=== PATIENT | male | born 1975 | race Hispanic/Latino ===

== ENCOUNTER 2024-09-30 07:05 | Observation (INO) | payer SELFPAY ==
[~2024-09-30] VITALS: Ht 165.1 cm; Wt 91.6 kg
--- NOTE | 2024-09-30 07:43 | ERN ---
General Chief Complaint: Abdominal Pain Stated Complaint: LLQ ABDOMINAL PAIN Time Seen by MD: 07:09 History of Present Illness Initial Comments 48M, otherwise healthy, presents for severe abdominal pain beginning a few hours ago. Patient reports LLQ pain, severe, not increased with movement. No n/v/d/fever. No urinary symptoms, no testicular pain. He has never had this pain before. Last oral intake was last night. Allergies: Coded Allergies: No Known Drug Allergies (Unverified Allergy, Unknown, 09/30/24) Past Medical History Past Medical History: No Pertinent History Past Surgical History: None ROS Dictation CONSTITUTIONAL: No chills, no fever, no weakness, no diaphoresis, no malaise. HEAD/FACE: No signs of trauma. EENT: No eye pain, no blurred vision, no tearing, no double vision, no ear pain, no ear discharge, no nose pain, no nasal congestion, no throat pain, no throat swelling, no mouth pain. RESPIRATORY: No cough, no orthopnea, no SOB, no stridor, no wheezing. CARDIOVASCULAR: No chest pain, no edema, no palpitations, no syncope. GASTROINTESTINAL/ABDOMINAL: Abdominal pain GENITOURINARY: No abnormal discharge, no dysuria, no frequent urination, no hematuria. No complaints of pain in the genitals. MUSCULOSKELETAL: No back pain, no gout, no joint pain, no joint swelling, no muscle pain, no muscle stiffness, no neck pain. INTEGUMENTARY: No change in color, no change in hair/nails, no dryness, no lesion, no lumps, no rash. NEUROLOGICAL/PSYCH: No anxiety, not depressed, no emotional problem, no headache, no numbness, no pre-existing deficit, no history of seizures, no tremors, no weakness. HEMATOLOGIC/LYMPHATIC: Not anemic, no history of blood clots, no apparent bleeding, no bruising, glands not swollen. All Systems Negative, Except as Noted. Physical Exam Physical Exam Dictation VITAL SIGNS: Reviewed. GENERAL APPEARANCE: Alert, oriented x3, moderate distress due to pain HEAD AND FACE: Non-traumatic. EYES: PERRL, pink conjunctivas, eyelid no trauma, anterior chamber clear. EARS: Pinnas intact and no signs of trauma or erythema. Ear canals clear and no discharge. TMs no erythema. NOSE: No discharge, no bleeding. OROPHARYNX: Mouth normal, teeth no caries, tongue pink. Pharynx clear, no erythema. Tonsils no exudates, no abscesses noted. Mucous membrane moist. NECK: Supple, non-tender, no thyromegaly, no masses, no JVD, no bruits. BREAST: Deferred. CHEST: No tenderness, no crepitus, no paradoxical movement, no retractions. LUNGS: Clear, well-ventilated, symmetric, no rales, no wheezing, no rhonchi, no stridor, good breath sounds bilaterally. HEART: Regular rate, regular rhythm, no murmur, no gallops. VASCULAR: No peripheral edema. ABDOMEN: Mild abdominal distention left lower quadrant tenderness RECTAL: Deferred. GENITAL: Deferred. NEUROLOGICAL: Normal speech, gross motor function intact, gross sensory function intact. MUSCULOSKELETAL: Neck nontender, full range of motion, back nontender, full range of motion. EXTREMITIES: Nontender, full range of motion. SKIN: Color pink, dry, no turgor, no rash, no lacerations, no abrasions, no contusions. LYMPHATICS: Deferred. Results Laboratory and Microbiology Lab and Micro Result Laboratory Tests Test 09/30/24 07:54 09/30/24 09:15 White Blood Count 12.7 K/uL (4.8-10.8) H Red Blood Count 5.12 MIL/uL (4.50-6.20) Hemoglobin 17.3 g/dL (14.0-18.0) Hematocrit 47.3 % (42-54) Mean Corpuscular Volume 92.4 fL (79-99) Mean Corpuscular Hemoglobin 33.8 pg (27.0-33.0) H Mean Corpuscular Hemoglobin Concent 36.6 g/dL (32.0-36.0) H Red Cell Distribution Width 11.9 % (11.0-15.5) Platelet Count 181 K/uL (130-400) Mean Platelet Volume 10.9 fL (7.5-10.5) H Immature Granulocyte % (Auto) 0.6 % (0-1) Neutrophils (%) (Auto) 74.3 % (40.0-77.0) Lymphocytes (%) (Auto) 13.7 % (21.0-51.0) L Monocytes (%) (Auto) 10.5 % (3.0-13.0) Eosinophils (%) (Auto) 0.5 % (0.0-8.0) Basophils (%) (Auto) 0.4 % (0.0-5.0) Neutrophils # (Auto) 9.4 K/uL (1.8-7.7) H Lymphocytes # (Auto) 1.7 K/uL (1.0-4.8) Monocytes # (Auto) 1.3 K/uL (0.1-1.0) H Eosinophils # (Auto) 0.06 K/uL (0.00-0.70) Basophils # (Auto) 0.05 K/uL (0.00-0.20) Absolute Immature Granulocyte (auto 0.08 K/uL (0-1) Nucleated Red Blood Cells 0.0 % (0.0-0.19) Red Blood Cell Morphology See comments Sodium Level 134 mmol/L (136-145) L Potassium Level 3.9 mmol/L (3.5-5.1) Chloride Level 103 mmol/L (101-111) Carbon Dioxide Level 27 mmol/L (21-32) Blood Urea Nitrogen 13 mg/dL (7-18) Creatinine 1.2 mg/dL (0.5-1.3) Glomerular Filtration Rate Calc 75 mL/min (>90) Random Glucose 119 mg/dL (70-105) H Total Calcium 9.2 mg/dL (8.5-10.1) Troponin I High Sensitivity 5 ng/L (4-75) Lipase 78 U/L (16-77) H Urine Color COLORLESS (YELLOW) Urine Appearance CLEAR (CLEAR) Urine pH 5.0 (5.0-8.0) Urine Specific [place] 1.027 (1.001-1.031) Urine Protein NEGATIVE mg/dL (NEGATIVE) Urine Glucose (UA) NEGATIVE mg/dL (NEGATIVE) Urine Ketones NEGATIVE mg/dL (NEGATIVE) Urine Occult Blood +- (TRACE) (NEGATIVE) H Urine Nitrate NEGATIVE (NEGATIVE) Urine Bilirubin NEGATIVE mg/dL (NEGATIVE) Urine Urobilinogen 0.2 mg/dL (0.2-1.0) Urine Leukocyte Esterase NEGATIVE Nghia/uL Urine RBC 6-10 /HPF (0-1) H Urine WBC None /HPF (0-1) Urine Squamous Epithelial Cells RARE /HPF (0-2) Urine Bacteria None /HPF (None Seen) MDM On left flank pain left lower abdominal pain Historian: Patient Comorbidities: None Limitations by social determinants of health: None Differential diagnosis: Diverticulitis, abdominal surgical pathology, kidney stone other Vital signs are stable Labs show mild leukocytosis, no shift or bands. Chemistries stable. Urinalysis does show blood, no signs of infection. CT scan shows hydronephrosis and stranding in the left side, consistent with that they stone other there was no obvious stone. Patient received fluid bolus, two different doses of Toradol, two doses of Dilaudid, on re-evaluation he is still in pain. We will admit for pain control. Patient is agreeable Hospitalist consulted ED Course Orders Procedure Category Date Status Time Cbc With Differential LAB 09/30/24 Complete 07:15 Troponin I High LAB 09/30/24 Complete Sensitivity 07:15 Urinalysis Profile LAB 09/30/24 Complete 07:15 Ct Abdomen/Pelvis CT 09/30/24 Resulted W/Contrast 07:15 Chest 1vw RAD 09/30/24 Resulted 07:15 Lipase LAB 09/30/24 Complete 07:15 Basic Metabolic Panel LAB 09/30/24 Complete 07:15 Lactated Ringers PHA 09/30/24 Complete 1000ml (Lactated 07:30 Hydromorphone 0.5mg PHA 09/30/24 Complete Syg (Dilaudid 0.5mg 07:30 Ketorolac PHA 09/30/24 Complete Tromethamine 15mg/Ml 07:30 Iohexol (Omnipaque) PHA 09/30/24 Complete 08:32 Ketorolac PHA 09/30/24 Complete Tromethamine 15mg/Ml 09:30 Hydromorphone 0.5mg PHA 09/30/24 Complete Syg (Dilaudid 0.5mg 09:30 Hydromorphone 1 Mg PHA 09/30/24 Transmitted Inj (Dilaudid 1mg Inj 11:30 Current Medications Medications (Trade) Dose Ordered Sig/Kit Route PRN Reason Start Time Stop Time Status Last Admin Dose Admin Hydromorphone HCl (DiLAUDid 0.5MG INJ) 0.5 mg ONCE ONCE IVP 09/30/24 07:30 09/30/24 07:31 DC 09/30/24 07:52 Hydromorphone HCl (DiLAUDid 0.5MG INJ) 0.5 mg ONCE ONCE IVP 09/30/24 09:30 09/30/24 09:34 DC 09/30/24 09:50 Hydromorphone HCl (DiLAUDid 1MG INJ) 1 mg ONCE ONCE IVP 09/30/24 11:30 09/30/24 11:31 UNV Iohexol (Omnipaque) 35,000 mg STK-MED ONCE IV 09/30/24 08:32 09/30/24 08:32 DC Ketorolac Tromethamine (toRADol) 15 mg ONCE ONCE IV 09/30/24 07:30 09/30/24 07:31 DC 09/30/24 07:52 Ketorolac Tromethamine (toRADol) 15 mg ONCE ONCE IV 09/30/24 09:30 09/30/24 09:34 DC 09/30/24 09:50 Lactated Ringer's 1,000 ml @ 0 mls/hr ONCE ONCE IV 09/30/24 07:30 09/30/24 07:31 DC 09/30/24 07:52 Vital Signs Date Time Temp Pulse Resp B/P (MAP) Pulse Ox O2 Delivery O2 Flow Rate FiO2 09/30/24 08:52 97.9 69 16 187/110 98 Room Air* 0 21 09/30/24 07:20 97.9 66 16 185/117 95 Room Air* 0 21 09/30/24 07:06 97.9 69 14 186/100 95 0 DX & DISP Disposition: Inpatient Departure Impression: Primary Impression: Left nephrolithiasis Additional Impressions: Intractable pain, Hydronephrosis, left Condition: Stable Referrals: SELF,REFERRAL (PCP) LESLI SOLIS DO September 30, 2024 07:43
[2024-09-30] MEDS: hydroMORPHone 0.5 MG SYG (0.5MG/0.5ML) IVP ONE ×2 (07:52→09:50)
[2024-09-30] MEDS: LACTATED RINGERS 1000ML 1,000 ML IV ONE ×2 (07:52→11:20)
[2024-09-30] MEDS: ketOROlac 15MG/ML VIAL (15MG/ML) IV ONE ×2 (07:52→09:50)
[2024-09-30 08:07] LABS: BASOPHILS # (AUTO) 0.05 K/uL (0.00-0.20); BASOPHILS % (AUTO) 0.4 % (0.0-5.0); EOSINOPHILS # (AUTO) 0.06 K/uL (0.00-0.70); EOSINOPHILS % (AUTO) 0.5 % (0.0-8.0); HEMATOCRIT 47.3 % (42-54); IMMATURE GRANULOCYTE ABSOLUTE 0.08 K/uL (0-1); LYMPHOCYTES # (AUTO) 1.7 K/uL (1.0-4.8); LYMPHOCYTES % (AUTO) 13.7 % (21.0-51.0); MEAN CORPUSCULAR HEMOGLOBIN 33.8 pg (27.0-33.0); MEAN CORPUSCULAR HGB CONC 36.6 g/dL (32.0-36.0); MEAN CORPUSCULAR VOLUME 92.4 fL (79-99); MONOCYTES # (AUTO) 1.3 K/uL (0.1-1.0); MONOCYTES % (AUTO) 10.5 % (3.0-13.0); NEUTROPHILS # (AUTO) 9.4 K/uL (1.8-7.7); NEUTROPHILS % (AUTO) 74.3 % (40.0-77.0); PLATELET COUNT (AUTO) 181 K/uL (130-400); RED BLOOD CELL COUNT(AUTO) 5.12 MIL/uL (4.50-6.20); RED CELL DISTRIBUTION WIDTH 11.9 % (11.0-15.5); WHITE BLOOD COUNT (AUTO) 12.7 K/uL (4.8-10.8)
[2024-09-30 08:17] LABS: CREATININE 1.2 mg/dL (0.5-1.3); POTASSIUM 3.9 mmol/L (3.5-5.1)
[2024-09-30] MEDS ORDERED: IOHEXOL 350 MG/ML 100ML INFUS..BTL IV ONE (08:32)
--- NOTE | 2024-09-30 09:02 | NUR ---
PT DOES NOT TAKE ANY DAILY MEDICATIONS.
--- NOTE | 2024-09-30 09:07 | HMCIMG ---
CHEST 1VW HISTORY: Abdominal pain COMPARISON: None FINDINGS: A frontal projection of the chest was obtained. Mild bilateral pulmonary infiltrates are seen may be related to mild pulmonary vascular congestion with possible superimposed pneumonitis. The heart is borderline enlarged. Degenerative changes are seen. No evidence of aortic calcification is seen. IMPRESSION: 1. Mild bilateral pulmonary infiltrates are seen may be related to mild pulmonary vascular congestion with possible superimposed pneumonitis.
--- NOTE | 2024-09-30 09:12 | HMCIMG ---
CT ABDOMEN/PELVIS W/CONTRAST HISTORY: Left lower abdominal pain COMPARISON: None TECHNIQUE: Multiple sequential axial images of the abdomen and pelvis were obtained from the dome of the diaphragm through symphysis pubis. Patient was not given contrast through intravenous route. Oral contrast was not given. FINDINGS: No pleural effusion is seen bilaterally. There is no evidence of parenchymal disease or pulmonary nodule of the visualized lower lungs. Degenerative changes of the thoracolumbar spine are present. The heart is not enlarged. The liver, spleen, adrenal glands and pancreas are unremarkable. No hydronephrosis is seen on the right. There is mild left hydronephrosis and left hydroureter with non opaque material in the left UV junction may be related to nonradiopaque stone. Fecal material is seen in the colon. There are normal size retroperitoneal and mesenteric lymph nodes. No ascites is seen. Atherosclerotic changes are present. Pelvic sidewalls are symmetric bilaterally. Bladder is well distended without wall thickening. IMPRESSION: 1. There is mild left hydronephrosis and left hydroureter with non opaque material in the left UV junction may be related to nonradiopaque stone. Left perinephric fat stranding is seen. CT was performed with one or more following dose reduction techniques: automated exposure control, adjustment of the mA and kv according to patient's size, or use of a iterative reconstruction technique.
[2024-09-30 09:38] LABS: APPEARANCE,URINE CLEAR (CLEAR); BILIRUBIN,URINE NEGATIVE (NEGATIVE); COLOR,URINE COLORLESS (YELLOW); GLUCOSE, URINE (UA) NEGATIVE (NEGATIVE); KETONES,URINE NEGATIVE (NEGATIVE); LEUKOCYTE ESTERASE ,URINE NEGATIVE Leu/uL (NEGATIVE); NITRATE,URINE NEGATIVE (NEGATIVE); PROTEIN,URINE NEGATIVE (NEGATIVE); UROBILINOGEN,URINE 0.2 mg/dL (0.2-1.0)
[2024-09-30 09:44] LABS: ADD UA MICROSCOPIC YES
[2024-09-30 09:46] LABS: MUCUS,URINE RARE LPF (None Seen); SQUAMOUS EPITHELIAL CELL,UR RARE /HPF (0-2)
[2024-09-30] MEDS: hydroMORPHone 1 MG INJ IVP ONE (11:20)
[2024-09-30] MEDS ORDERED: ondanSETRON 4MG INJ IVP PRN (12:00)
[2024-09-30] MEDS ORDERED: acetaMINOPHEN 325 MG TAB PO PRN ×2 (12:00)
[2024-09-30] MEDS ORDERED: morPHINE 2 MG SYG IVP PRN (12:00)
[2024-09-30] MEDS: 0.9%NACL 1000ML 1,000 ML IV SCH (12:21)
--- NOTE | 2024-09-30 12:33 | NUR ---
Patient does not take any home medication.
--- NOTE | 2024-09-30 13:44 | NUR ---
Called Mr. Riley for report. Patients vital signs before transfer: blood pressure 160/90 mmHg pulse 78 p/min O2 saturation 99% Respiration 17 p/min at room air temperature 98.8
--- NOTE | 2024-09-30 13:47 | HP ---
[facility] HISTORY AND PHYSICAL Date of Service: September 30, 2024 Time of Service: 13:40 HISTORY OF PRESENT ILLNESS: [He is a 48-year-old male who denies any past medical history presented to the emergency department with complaints of left lower quadrant abdominal pain. Patient reported that around 2:00 a.m. when he started having the pain and continue to progress hence he came to the emergency department for further evaluation. Patient stated that this never happened to him before, he denies nausea vomiting diarrhea no fever no chills. In the ED, his initial vitals showed temperature of 97.9 F, pulse 69, respiratory rate , blood pressure 186/100, pulse oximetry 95% on room air. Lab reviewed, WBC 12.7, sodium 134, random glucose 119, lipase 78. Patient was started with IV fluids with lactated ringer and received Dilaudid a total of2 mg IV, Toradol 30 mg IV in the ED. but patient continued with pain hence referral to monitor the patient for intractable pain. A CT abdomen and pelvis showed mild left hydronephrosis and left hydroureter with non opaque material in the left UV junction maybe related to non radiopaque stone. Left perinephric fat stranding is seen. REVIEW OF SYSTEMS CONSTITUTIONAL: Denies fevers, chills, or night sweats. No unintentional weight loss reported. NEUROLOGICAL: Denies headache, amaurosis fugax, motor weakness, sensory deficit, vertigo/spinning sensation, gait abnormalities, or tremors. ENT: No hearing loss, otalgia, otorrhea, rhinitis, rhinorrhea, hoarseness, or sore throat. CARDIOVASCULAR: Denies any exertional angina, dyspnea on exertion, orthopnea, paroxysmal nocturnal dyspnea, palpitations, life-threatening arrhythmias, claudication. PULMONARY: Denies any shortness of breath, cough, phlegm/sputum, hemoptysis, pleuritic chest pain. SLEEP: Denies morning headaches, daytime somnolence or napping. Denies difficulty falling asleep, staying asleep, waking from sleep. Denies knowledge of snoring. GASTROINTESTINAL: Denies any type of dysphagia to either liquids or solids. Denies nausea, vomiting, pyrosis, early satiety, abdominal pain, diarrhea, co nstipation, or changes in stool consistency or caliber. Denies coffee-ground emesis, hematemesis, hematochezia, or melanotic stools. GENITOURINARY: Denies frequency, urgency, nocturia, hematuria or incontinence (Storage/Irritative symptoms.) Low urinary stream, straining to void, urinary intermittency or hesitancy, splitting of the voiding stream, terminal dribbling. ENDOCRINOLOGIC: Denies polyuria, polydipsia, polyphagia or heat/cold intolerances. HEMATOLOGIC: Denies thrombophilia/previous clots, or coagulopathy/bleeding disorders. ONCOLOGIC: Denies personal history of malignancy. DERMATOLOGIC: Denies rashes or pruritus. PSYCHIATRIC: Denies any suicidal or homicidal ideation. Denies hallucinations. PAST MEDICAL HISTORY: [Denies any past medical history ] PAST SURGICAL HISTORY: [ Denies any past surgical history ] PAST SOCIAL HISTORY: [Patient drinks alcohol at least4 times a week, denies tobacco or illicit drug use ] FAMILY HISTORY: [Noncontributory ] Coded Allergies: No Known Drug Allergies (Unverified Allergy, Unknown, 09/30/24) PHYSICAL EXAM GENERAL APPEARANCE: The patient is awake, alert, and oriented, in no acute cardiopulmonary distress. NEUROLOGICAL: Cranial nerves II-XII grossly intact. Motor is 5/5 in bilateral upper and lower extremities proximal to distal. No sensory deficits. HEENT: Face is symmetric. Pupils are equal and reactive. Extraocular movements are intact. NECK: Supple. No JVD. No thyromegaly. No submental, submandibular, pre- /postauricular, occipital or supraclavicular lymphadenopathy. CHEST: Normal chest expansion. No Telemetry. LUNGS: Absence of any rales, rhonchi or any wheezing. CARDIOVASCULAR: Regular. S1 and S2 normal. No appreciable rubs, murmurs or gallops. ABDOMEN: Soft, nontender, and nondistended. There is no rebound, voluntary guarding, or rigidity. : Deferred. No [place]. EXTREMITIES: Non-edematous and not cyanotic. No clubbing. Good capillary refill. SKIN: No skin breakdown. Vital Sign (Last 24 Hours) 09/30/24 08:52 Temp 97.9 Pulse 69 Resp 16 B/P (MAP) 187/110 Pulse Ox 98 O2 Delivery Room Air* O2 Flow Rate 0 FiO2 21 LABS: Laboratory: Test 09/30/24 09:15 09/30/24 07:54 Range/Units Urine Color COLORLESS YELLOW Urine Appearance CLEAR CLEAR Urine pH 5.0 5.0-8.0 Urine Specific [place] 1.027 1.001-1.031 Urine Protein NEGATIVE NEGATIVE mg/dL Urine Glucose (UA) NEGATIVE NEGATIVE mg/dL Urine Ketones NEGATIVE NEGATIVE mg/dL Urine Occult Blood +- (TRACE) H NEGATIVE Urine Nitrate NEGATIVE NEGATIVE Urine Bilirubin NEGATIVE NEGATIVE mg/dL Urine Urobilinogen 0.2 0.2-1.0 mg/dL Urine Leukocyte Esterase NEGATIVE NEGATIVE Nghia/uL Urine RBC 6-10 H 0-1 /HPF Urine WBC None 0-1 /HPF Urine Squamous Epithelial Cells RARE 0-2 /HPF Urine Bacteria None None Seen /HPF White Blood Count 12.7 H 4.8-10.8 K/uL Red Blood Count 5.12 4.50-6.20 MIL/uL Hemoglobin 17.3 14.0-18.0 g/dL Hematocrit 47.3 42-54 % Mean Corpuscular Volume 92.4 79-99 fL Mean Corpuscular Hemoglobin 33.8 H 27.0-33.0 pg Mean Corpuscular Hemoglobin Concent 36.6 H 32.0-36.0 g/dL Red Cell Distribution Width 11.9 11.0-15.5 % Platelet Count 181 130-400 K/uL Mean Platelet Volume 10.9 H 7.5-10.5 fL Immature Granulocyte % (Auto) 0.6 0-1 % Neutrophils (%) (Auto) 74.3 40.0-77.0 % Lymphocytes (%) (Auto) 13.7 L 21.0-51.0 % Monocytes (%) (Auto) 10.5 3.0-13.0 % Eosinophils (%) (Auto) 0.5 0.0-8.0 % Basophils (%) (Auto) 0.4 0.0-5.0 % Neutrophils # (Auto) 9.4 H 1.8-7.7 K/uL Lymphocytes # (Auto) 1.7 1.0-4.8 K/uL Monocytes # (Auto) 1.3 H 0.1-1.0 K/uL Eosinophils # (Auto) 0.06 0.00-0.70 K/uL Basophils # (Auto) 0.05 0.00-0.20 K/uL Absolute Immature Granulocyte (auto 0.08 0-1 K/uL Nucleated Red Blood Cells 0.0 0.0-0.19 % Red Blood Cell Morphology See comments Sodium Level 134 L 136-145 mmol/L Potassium Level 3.9 3.5-5.1 mmol/L Chloride Level 103 101-111 mmol/L Carbon Dioxide Level 27 21-32 mmol/L Blood Urea Nitrogen 13 7-18 mg/dL Creatinine 1.2 0.5-1.3 mg/dL Glomerular Filtration Rate Calc 75 >90 mL/min Random Glucose 119 H 70-105 mg/dL Total Calcium 9.2 8.5-10.1 mg/dL Troponin I High Sensitivity 5 4-75 ng/L Lipase 78 H 16-77 U/L Current Medications Medications (Trade) Dose Ordered Sig/Kit Route PRN Reason Start Time Stop Time Status Last Admin Dose Admin Acetaminophen (TYLenol 325MG TAB) 650 mg Q4H PRN PO TEMPERATURE GREATER THAN 101.5 09/30/24 12:00 10/30/24 11:59 Acetaminophen (TYLenol 325MG TAB) 650 mg Q6H PRN PO MILD PAIN (1-3) 09/30/24 12:00 10/30/24 11:59 Ketorolac Tromethamine (toRADol) 15 mg Q6H PRN IV MODERATE PAIN (4-6) 09/30/24 12:00 10/05/24 11:59 Morphine Sulfate (morPHINE 2MG SYG) 2 mg Q4H PRN IVP SEVERE PAIN (7-10) 09/30/24 12:00 10/07/24 11:59 Ondansetron HCl (zoFRAN 4MG INJ) 4 mg Q6H PRN IVP NAUSEA/VOMITING 09/30/24 12:00 10/30/24 11:59 Sodium Chloride 1,000 ml @ 125 mls/hr Q8H IV 09/30/24 12:00 10/30/24 11:59 09/30/24 12:21 125 MLS/HR DIAGNOSTICS / RADIOLOGY: [[place] [address] [address] IMAGING REPORT Signed PATIENT: VERNON SMITH MR#: [id number] : 1975 SEX: M AGE: 48 LOCATION: [facility] ORDER [id number] STATUS: REG ER REPORT#: [id number] SERVICE 4 REASON: LLQ pain ORDERING PHYSICIAN: LESLI SOLIS DO PROCEDURE: ABD PEL W - CT ABDOMEN/PELVIS W/CONTRAST CT ABDOMEN/PELVIS W/CONTRAST HISTORY: Left lower abdominal pain COMPARISON: None TECHNIQUE: Multiple sequential axial images of the abdomen and pelvis were obtained from the dome of the diaphragm through symphysis pubis. Patient was not given contrast through intravenous route. Oral contrast was not given. FINDINGS: No pleural effusion is seen bilaterally. There is no evidence of parenchymal disease or pulmonary nodule of the visualized lower lungs. Degenerative changes of the thoracolumbar spine are present. The heart is not enlarged. The liver, spleen, adrenal glands and pancreas are unremarkable. No hydronephrosis is seen on the right. There is mild left hydronephrosis and left hydroureter with non opaque material in the left UV junction may be related to nonradiopaque stone. Fecal material is seen in the colon. There are normal size retroperitoneal and mesenteric lymph nodes. No ascites is seen. Atherosclerotic changes are present. Pelvic sidewalls are symmetric bilaterally. Bladder is well distended without wall thickening. IMPRESSION: 1. There is mild left hydronephrosis and left hydroureter with non opaque material in the left UV junction may be related to nonradiopaque stone. Left perinephric fat stranding is seen. CT was performed with one or more following dose reduction techniques: automated exposure control, adjustment of the mA and kv according to patient's size, or use of a iterative reconstruction technique. DICTATED BY: MICKEY DECKER MD DATE: 09/30/24906 ELECTRONICALLY SIGNED BY: MICKEY DECKER MD DATE: 09/30/24911 ] ASSESSMENT: [Intractable abdominal pain, POA Leukocytosis, POA Hyponatremia, POA Hyperglycemia with diabetes mellitus, POA Mild pancreatitis, POA Frequent weekly alcohol use, POA ] PLAN: [Patient will be admitted to medical-surgical floor Patient can have regular diet Patient will continue with IV fluids He will continue with IV pain management Patient will be on CIWA protocol due to frequent daily use of alcohol We will continue to monitor electrolytes and replete as necessary GI and DVT prophylaxis We will repeat labs tomorrow Patient is a full code Discussed case with attending physician, above plan was formulated ADVANCED CARE PLANNING 1. Which of the following were discussed? Hospice Care - Yes / No Therapeutic options - Yes / No Advance Directives - Yes / No Other discussions - 2. Discussed with who? Patient 3. Voluntary nature of this service was explained to the patient? Yes / No 4. Amount of time spent - _21 mins 5. Reviewed by Physician? (if this service was performed by NPP) Yes / No ] ADDENDUM: ATTENDING PHYSICIAN ATTESTATION: I have reviewed the [facility]'s plan. I have independently seen, reviewed the chart and made my own assessment of the patient. See my addendum for updates to the [facility]'s medical plan MD BRAD Benjamin JANICE B [facility] September 30, 2024 13:47 MONISHA DOS SANTOS MD October 01, 2024 11:51
[2024-09-30 13:50] VITALS: BP 152/106; PULSE 57; RESP 16; TEMP 97.6
[2024-09-30] MEDS ORDERED: diazePAM 5 MG/ML 2 ML SYG IVP PRN (14:00)
[2024-09-30] MEDS ORDERED: PHARMACY COMMUNICATION MISC PRN (14:00)
[2024-09-30] MEDS ORDERED: chlordiazePOXIDE HCL 25 MG CAP PO PRN (14:00)
[2024-09-30 14:05] VITALS: O2SAT 94
--- NOTE | 2024-09-30 16:35 | NUR ---
DCP: HOME Pt currently lives with sister Areli Yanez [phone]. Pt denies any insecurities with food, detention, and/or utilities. Pt does not have DME, home health, or provider services. Pt is able to complete ADLs independently. Pt does not have a PCP, SW provided community resources for him to access. At [place] pt will go home and sister will assist with transportation. Addendum: 09/30/24 at 1638 by LATOYA KEENAN SS Amended: Links added.
[2024-09-30 16:45] VITALS: BP 146/67; PULSE 58; RESP 16; TEMP 98.7
[2024-09-30 20:00] VITALS: BP 164/111; PULSE 66; RESP 18; TEMP 98.4
--- NOTE | 2024-09-30 20:12 | NUR ---
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
[2024-09-30 20:37] VITALS: O2SAT 96
[2024-09-30] MEDS: LISINOPRIL 5 MG TABLET PO ONE (20:59)
[2024-09-30 21:15] LABS: AMPHET/METH SCREEN,URINE NEGATIVE (NEGATIVE); BARBITURATE SCREEN, URINE NEGATIVE (NEGATIVE); BENZODIAZEPINES SCREEN,URINE NEGATIVE (NEGATIVE); CANNABINOID SCREEN,URINE NEGATIVE (NEGATIVE); COCAINE SCREEN,URINE NEGATIVE (NEGATIVE); OPIATE SCREEN,URINE NEGATIVE (NEGATIVE); PHENCYCLIDINE SCREEN,URINE NEGATIVE (NEGATIVE)
--- NOTE | 2024-09-30 23:41 | NUR ---
BP PAGED HOSPITALIST ASSISTANT EDITOR MADE [facility] JANE AWARE PT CONTINUES WITH ELEVATED BP, N/O HYDRALAZINE 5MG PO Q4 PRN
[2024-09-30 23:59] VITALS: BP 157/104; PULSE 73; RESP 20; TEMP 98.4
[2024-10-01] VITALS (7 sets, daily range): BP systolic 145–170; BP diastolic 80–102; PULSE 70–86; RESP 18–20; TEMP 97.8–98.7; O2SAT 93
[2024-10-01] MEDS: hydrALAZine HCL 10 MG TABLET PO PRN (00:07)
--- NOTE | 2024-10-01 00:30 | NUR ---
REPORT REPORT RECEIVED FROM NEHEMIAS DOTY. ASSUMED CARE FROM NOW. NURSE'S ROUNDS DONE. PT STILL AWAKE, NO DISTRESS NOTED. NO COMPLAINTS VERBALIZED. KEPT RESTED AND COMFORTABLE IN BED. CALL LIGHT WITHIN REACH.
--- NOTE | 2024-10-01 03:50 | NUR ---
BP PCP REPORTED PT'S ZH=653/89, HR=71. NO COMPLAINTS VERBALIZED. NO DISTRESS NOTED. 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 AWAITING CALL BACK.
--- NOTE | 2024-10-01 03:57 | NUR ---
[employer] MAINTENANCE CONSULTANT LUCINDA IVERSON CALLED BACK AND REFERRED PT'S ELEVATED BP. NEW MEDS ORDERED. PLEASE REFER TO CPOE. WILL MEDICATE PT.
[2024-10-01] MEDS: hydrALAZine 20MG/ML VIAL IV PRN (04:07)
[2024-10-01 04:16] LABS: HEMATOCRIT 43.5 % (42-54); RED BLOOD CELL COUNT(AUTO) 4.73 MIL/uL (4.50-6.20); RED CELL DISTRIBUTION WIDTH 11.9 % (11.0-15.5); WHITE BLOOD COUNT (AUTO) 9.9 K/uL (4.8-10.8)
[2024-10-01 04:40] LABS: CREATININE 1.4 mg/dL (0.5-1.3); POTASSIUM 3.5 mmol/L (3.5-5.1)
--- NOTE | 2024-10-01 05:00 | NUR ---
RE-CHECK PT IS AWAKE, CONVERSANT AND COHERENT. NO CONCERNS VERBALIZED. NO DISTRESS NOTED. BP RE-CHECKED BY PCP = 157/89, HR=77. KEPT RESTED IN BED. FOR MORE CARE.
[2024-10-01] MEDS: tamSULOsin HCL 0.4 MG CAP.ER.24H PO SCH (08:58)
[2024-10-01] MEDS: THIAMINE HCL 100 MG/ML 2ML VIAL IM SCH (08:58)
[2024-10-01] MEDS: FOLic ACID 1 MG TABLET PO SCH (08:58)
[2024-10-01] MEDS: MULTIVITAMIN TABLET PO SCH (08:58)
--- NOTE | 2024-10-01 11:50 | PN ---
[facility] PROGRESS NOTE Date of Service: October 01, 2024 Time of Service: 11:42 SUBJECTIVE: Patient seen at bedside, no acute events overnight. He reports the pain to his left lower quadrant has improved since admission, some tenderness noted on auscultation. We will continue with IV fluids, start stranding the urine and start tamsulosin to assess for passed stone. If patient remains asymptomatic until tomorrow he will be a good candidate for discharge. REVIEW OF SYSTEMS 12 point ROS negative unless noted in HPI PHYSICAL EXAM GENERAL APPEARANCE: The patient is awake, alert, and oriented, in no acute cardiopulmonary distress. NEUROLOGICAL: Cranial nerves II-XII grossly intact. Motor is 5/5 in bilateral upper and lower extremities proximal to distal. No sensory deficits. HEENT: Face is symmetric. Pupils are equal and reactive. Extraocular movements are intact. NECK: Supple. No JVD. No thyromegaly. No submental, submandibular, pre- /postauricular, occipital or supraclavicular lymphadenopathy. CHEST: Normal chest expansion. No Telemetry. LUNGS: Absence of any rales, rhonchi or any wheezing. CARDIOVASCULAR: Regular. S1 and S2 normal. No appreciable rubs, murmurs or gallops. ABDOMEN: Soft, nontender, and nondistended. There is no rebound, voluntary guarding, or rigidity. : Deferred. No [place]. EXTREMITIES: Non-edematous and not cyanotic. No clubbing. Good capillary ref ill. SKIN: No skin breakdown. Vital Signs (last 8hr) Date Time Temp Pulse Resp B/P (MAP) Pulse Ox O2 Delivery O2 Flow Rate FiO2 10/01/24 09:06 93 Room Air* 0 21 10/01/24 08:00 98.2 78 19 149/96 93 Room Air 21 10/01/24 05:00 77 157/84 Room Air 10/01/24 03:52 98.4 71 18 170/89 92 Room Air LABS: Laboratory: Test 10/01/24 04:00 09/30/24 09:15 09/30/24 07:54 Range/Units White Blood Count 9.9 4.8-10.8 K/uL Red Blood Count 4.73 4.50-6.20 MIL/uL Hemoglobin 16.1 14.0-18.0 g/dL Hematocrit 43.5 42-54 % Mean Corpuscular Volume 92.0 79-99 fL Mean Corpuscular Hemoglobin 34.0 H 27.0-33.0 pg Mean Corpuscular Hemoglobin Concent 37.0 H 32.0-36.0 g/dL Red Cell Distribution Width 11.9 11.0-15.5 % Platelet Count 158 130-400 K/uL Mean Platelet Volume 11.1 H 7.5-10.5 fL Nucleated Red Blood Cells 0.0 0.0-0.19 % Sodium Level 137 136-145 mmol/L Potassium Level 3.5 3.5-5.1 mmol/L Chloride Level 102 101-111 mmol/L Carbon Dioxide Level 27 21-32 mmol/L Blood Urea Nitrogen 15 7-18 mg/dL Creatinine 1.4 H 0.5-1.3 mg/dL Glomerular Filtration Rate Calc 62 >90 mL/min Random Glucose 108 H 70-105 mg/dL Total Calcium 8.3 L 8.5-10.1 mg/dL Urine Color COLORLESS YELLOW Urine Appearance CLEAR CLEAR Urine pH 5.0 5.0-8.0 Urine Specific [place] 1.027 1.001-1.031 Urine Protein NEGATIVE NEGATIVE mg/dL Urine Glucose (UA) NEGATIVE NEGATIVE mg/dL Urine Ketones NEGATIVE NEGATIVE mg/dL Urine Occult Blood +- (TRACE) H NEGATIVE Urine Nitrate NEGATIVE NEGATIVE Urine Bilirubin NEGATIVE NEGATIVE mg/dL Urine Urobilinogen 0.2 0.2-1.0 mg/dL Urine Leukocyte Esterase NEGATIVE NEGATIVE [place]/uL Urine RBC 6-10 H 0-1 /HPF Urine WBC None 0-1 /HPF Urine Squamous Epithelial Cells RARE 0-2 /HPF Urine Bacteria None None Seen /HPF Urine Opiates Screen NEGATIVE NEGATIVE Urine Barbiturates Screen NEGATIVE NEGATIVE Urine Phencyclidine Screen NEGATIVE NEGATIVE Urine Amphetamines Screen NEGATIVE NEGATIVE Urine Benzodiazepines Screen NEGATIVE NEGATIVE Urine Cocaine Screen NEGATIVE NEGATIVE Urine Marijuana (THC) Screen NEGATIVE NEGATIVE Immature Granulocyte % (Auto) 0.6 0-1 % Neutrophils (%) (Auto) 74.3 40.0-77.0 % Lymphocytes (%) (Auto) 13.7 L 21.0-51.0 % Monocytes (%) (Auto) 10.5 3.0-13.0 % Eosinophils (%) (Auto) 0.5 0.0-8.0 % Basophils (%) (Auto) 0.4 0.0-5.0 % Neutrophils # (Auto) 9.4 H 1.8-7.7 K/uL Lymphocytes # (Auto) 1.7 1.0-4.8 K/uL Monocytes # (Auto) 1.3 H 0.1-1.0 K/uL Eosinophils # (Auto) 0.06 0.00-0.70 K/uL Basophils # (Auto) 0.05 0.00-0.20 K/uL Absolute Immature Granulocyte (auto 0.08 0-1 K/uL Red Blood Cell Morphology See comments Troponin I High Sensitivity 5 4-75 ng/L Lipase 78 H 16-77 U/L Current Medications Medications (Trade) Dose Ordered Sig/Kit Route PRN Reason Start Time Stop Time Status Last Admin Dose Admin Acetaminophen (TYLenol 325MG TAB) 650 mg Q4H PRN PO TEMPERATURE GREATER THAN 101.5 09/30/24 12:00 10/30/24 11:59 Acetaminophen (TYLenol 325MG TAB) 650 mg Q6H PRN PO MILD PAIN (1-3) 09/30/24 12:00 10/30/24 11:59 Chlordiazepoxide HCl (LIBrium 25 MG CAP) 25 mg Q2H PRN PO ALCOHOL WITHDRAWAL PROTOCOL 09/30/24 14:00 10/07/24 13:59 Diazepam (VALium 5 MG/ML 2 ML SYG) 10 mg Q4H PRN IVP ALCOHOL WITHDRAWAL PROTOCOL 09/30/24 14:00 10/07/24 13:59 Folic Acid (FOLic ACID 1 MG TABLET) 1 mg DAILY PO 10/01/24 09:00 10/03/24 09:01 10/01/24 08:58 1 MG Hydralazine HCl (APRESOLine 10MG TAB) 5 mg Q4PRN PRN PO IF SBP GREATER THAN 160 10/01/24 00:00 10/01/24 03:58 DC 10/01/24 00:07 5 MG Hydralazine HCl (APRESOLine 20MG INJ) 10 mg Q6H PRN IV ADMINISTER FOR SBP > 160 10/01/24 04:00 10/31/24 03:59 10/01/24 04:07 10 MG Ketorolac Tromethamine (toRADol) 15 mg Q6H PRN IV MODERATE PAIN (4-6) 09/30/24 12:00 10/05/24 11:59 Morphine Sulfate (morPHINE 2MG SYG) 2 mg Q4H PRN IVP SEVERE PAIN (7-10) 09/30/24 12:00 10/07/24 11:59 Multivitamins Therapeutic (Multivitamin Tablet) 1 tab DAILY PO 10/01/24 09:00 10/31/24 08:59 10/01/24 08:58 1 TAB Ondansetron HCl (zoFRAN 4MG INJ) 4 mg Q6H PRN IVP NAUSEA/VOMITING 09/30/24 12:00 10/30/24 11:59 Pharmacy Profile Note (Pharmacy Communication) 1 each PROTOCOL PRN MISC ETOH Withdrawal Score changes 09/30/24 14:00 09/30/24 13:45 DC Sodium Chloride 1,000 ml @ 125 mls/hr Q8H IV 09/30/24 12:00 10/30/24 11:59 10/01/24 04:02 125 MLS/HR Tamsulosin HCl (FloMAX) 0.4 mg DAILY PO 10/01/24 09:00 10/31/24 08:59 10/01/24 08:58 0.4 MG Thiamine HCl (Vitamin B-1) 100 mg DAILY IM 10/01/24 09:00 10/03/24 09:01 10/01/24 08:58 100 MG DIAGNOSTICS / RADIOLOGY: [ ] ASSESSMENT: Intractable abdominal pain, resolved POA Leukocytosis, resolved POA Possible stone at left ureteral-vesicular junction Hyponatremia, POA Hyperglycemia with diabetes mellitus, POA Mild pancreatitis, POA Frequent weekly alcohol use, POA PLAN: Patient will be admitted to medical-surgical floor Patient can have regular diet Patient will continue with IV fluids Strain urine Start tamsulosin He will continue with IV pain management Patient will be on CIWA protocol due to frequent daily use of alcohol We will continue to monitor electrolytes and replete as necessary GI and DVT prophylaxis We will repeat labs tomorrow Disposition: Pending improvement in clinical status MONISHA DOS SANTOS MD October 01, 2024 11:50
[2024-10-01] MEDS: ketOROlac 15MG/ML VIAL (15MG/ML) IV PRN (16:01)
--- NOTE | 2024-10-01 17:18 | NUR ---
TORADOL REMOVED FROM OMNICELL AND DRAWN IN ERROR. TORADOL DOSE WASTED AND DISPOSED OF IN SHARPS CONTAINER.
[2024-10-02] VITALS: BP 154/99; PULSE 76; RESP 18; TEMP 98
[2024-10-02 04:00] VITALS: BP 143/91; PULSE 70; RESP 18; TEMP 97.9
[2024-10-02 05:13] LABS: BASOPHILS # (AUTO) 0.01 K/uL (0.00-0.20); BASOPHILS % (AUTO) 0.1 % (0.0-5.0); EOSINOPHILS # (AUTO) 0.08 K/uL (0.00-0.70); EOSINOPHILS % (AUTO) 0.9 % (0.0-8.0); IMMATURE GRANULOCYTE ABSOLUTE 0.03 K/uL (0-1); LYMPHOCYTES # (AUTO) 1.2 K/uL (1.0-4.8); LYMPHOCYTES % (AUTO) 14.2 % (21.0-51.0); MEAN CORPUSCULAR HEMOGLOBIN 33.3 pg (27.0-33.0); MEAN CORPUSCULAR HGB CONC 35.7 g/dL (32.0-36.0); MEAN CORPUSCULAR VOLUME 93.3 fL (79-99); MONOCYTES # (AUTO) 1.3 K/uL (0.1-1.0); MONOCYTES % (AUTO) 15.3 % (3.0-13.0); NEUTROPHILS # (AUTO) 5.9 K/uL (1.8-7.7); NEUTROPHILS % (AUTO) 69.1 % (40.0-77.0); PLATELET COUNT (AUTO) 135 K/uL (130-400); RED CELL DISTRIBUTION WIDTH 11.8 % (11.0-15.5); WHITE BLOOD COUNT (AUTO) 8.5 K/uL (4.8-10.8)
[2024-10-02 05:21] LABS: HEMOGLOBIN A1C 5.4 % (4.0-6.0)
[2024-10-02 05:24] LABS: CREATININE 1.3 mg/dL (0.5-1.3); MAGNESIUM 2.1 mg/dL (1.80-2.40); POTASSIUM 3.3 mmol/L (3.5-5.1)
[2024-10-02 05:49] LABS: WBC MORPHOLOGY CONSISTENT W/DIFF
[2024-10-02 08:00] VITALS: O2SAT 93
[2024-10-02 08:09] VITALS: BP 161/105; PULSE 70; RESP 18; TEMP 97.8
[2024-10-02] MEDS ORDERED: TAMS-55 PO (11:57)
[2024-10-02 12:07] VITALS: BP 170/117; PULSE 71; RESP 18; TEMP 97.8
--- NOTE | 2024-10-02 13:17 | NUR ---
PIV DC'D, DISCHARGE INSTRUCTIONS REVIEWED WITH PT. ALL QUESTIONS ANSWERED AT THIS TIME.
--- NOTE | 2024-10-02 16:41 | DS ---
Discharge Summary Hospital Course Summary: 48-year-old male who denies any past medical history presented to the emergency department with complaints of left lower quadrant abdominal pain. Patient reported that around 2:00 a.m. when he started having the pain and continue to progress hence he came to the emergency department for further evaluation. Patient stated that this never happened to him before, he denies nausea vomiting diarrhea no fever no chills. Patient was started with IV fluids with lactated ringer and received Dilaudid a total of2 mg IV, Toradol 30 mg IV in the ED. but patient continued with pain hence referral to monitor the patient for intractable pain. A CT abdomen and pelvis showed mild left hydronephrosis and left hydroureter with non opaque material in the left UV junction maybe related to non radiopaque stone. Left perinephric fat stranding is seen. He was admitted and started on tamsulosin with straining the urine. Urine culture did not grow any bacteria. On hospital day 2 he passed a stone and was asymptomatic. He was discharged home on tamsulosin to follow up with his PCP. . Procedure(s): CHEST 1VW HISTORY: Abdominal pain COMPARISON: None FINDINGS: A frontal projection of the chest was obtained. Mild bilateral pulmonary infiltrates are seen may be related to mild pulmonary vascular congestion with possible superimposed pneumonitis. The heart is borderline enlarged. Degenerative changes are seen. No evidence of aortic calcification is seen. IMPRESSION: 1. Mild bilateral pulmonary infiltrates are seen may be related to mild pulmonary vascular congestion with possible superimposed pneumonitis. CT ABDOMEN/PELVIS W/CONTRAST HISTORY: Left lower abdominal pain COMPARISON: None TECHNIQUE: Multiple sequential axial images of the abdomen and pelvis were obtained from the dome of the diaphragm through symphysis pubis. Patient was not given contrast through intravenous route. Oral contrast was not given. FINDINGS: No pleural effusion is seen bilaterally. There is no evidence of parenchymal disease or pulmonary nodule of the visualized lower lungs. Degenerative changes of the thoracolumbar spine are present. The heart is not enlarged. The liver, spleen, adrenal glands and pancreas are unremarkable. No hydronephrosis is seen on the right. There is mild left hydronephrosis and left hydroureter with non opaque material in the left UV junction may be related to nonradiopaque stone. Fecal material is seen in the colon. There are normal size retroperitoneal and mesenteric lymph nodes. No ascites is seen. Atherosclerotic changes are present. Pelvic sidewalls are symmetric bilaterally. Bladder is well distended without wall thickening. IMPRESSION: 1. There is mild left hydronephrosis and left hydroureter with non opaque material in the left UV junction may be related to nonradiopaque stone. Left perinephric fat stranding is seen. Assessment/Plan: Intractable abdominal pain, resolved POA Leukocytosis, resolved POA Stone at left ureteral-vesicular junction, resolved, POA Hyponatremia, POA Hyperglycemia with diabetes mellitus, POA Mild pancreatitis, POA Frequent weekly alcohol use, POA Discharge Instructions: Follow up with PCP in 3-7 days Home Medications: Active Scripts Tamsulosin HCl (Flomax) 0.4 Mg Cap.er.24h, 0.4 MG PO DAILY, #30 CAPSULE.DR 0 Refills Prov:MONISHA DOS SANTOS MD 10/02/24 New Medications: Tamsulosin HCl (Flomax) 0.4 Mg Cap.er.24h 0.4 MG PO DAILY, #30 CAPSULE.DR 0 Refills Time spent arranging discharge: 31-60 minutes MONISHA DOS SANTOS MD October 02, 2024 16:41
== END 2024-10-02 12:50 | disposition home or self-care (01) ==
LOC: EDH 07:05 → EDHIP 07:06 → INTOOBSV 07:06 → 3BH 13:48
PROVIDERS: ADMIT Internal Medicine; ATTEND Internal Medicine
DX: E87.1 Hypo-osmolality and hyponatremia (principal); E11.65 Type 2 diabetes mellitus with hyperglycemia; K85.90 Acute pancreatitis without necrosis or infection, unspecified; N13.2 Hydronephrosis with renal and ureteral calculous obstruction; D72.829 Elevated white blood cell count, unspecified; F10.10 Alcohol abuse, uncomplicated; Z79.899 Other long term (current) drug therapy; Y90.9 Presence of alcohol in blood, level not specified
CPT/HCPCS: 96374; 96376 ×3; 96361 ×4; 96375 ×2; 99285; 84484; 80048 ×3; 80305; 83690; 85025 ×2; 81001; 36415 ×3; 71045; 74177; 96372; 85027; 83036; 83735; 84100; G0378 ×49; J7120; J1171 ×3; J1885 ×4; Q9967; J0360 ×2; J3411 ×2